=== PATIENT | male | born 1990 | race Caucasian/White ===

== ENCOUNTER 2017-02-14 21:17 | Emergency (ER) | payer BC ==
[2017-02-14 21:20] VITALS: BP 111/73; PULSE 66; TEMP 98.3; BMI 21.4
--- NOTE | 2017-02-14 21:39 | PDOC ---
History of Present Illness <Colin Paul - Last Filed: 02/14/17 21:35> - General History Source: Patient, Family Exam Limitations: No Limitations <Xavier Lara - Last Filed: 02/14/17 21:43> - General Chief Complaint: Syncope/Near Syncope Stated Complaint: SYNCOPE Time Seen by Provider: 02/14/17 21:20 - History of Present Illness Initial Comments: 02/14/17 21:40 The patient is a 26 year old male, with a significant past medical history of [place] syndrome and low blood pressure, who presents to the emergency department after a syncopal episode today. He reports that today he felt mild viral like syndromes, which included abdominal cramping throughout the day. While he was at dinner with his parents he became diaphoretic as the abdominal cramping worsened. He became lightheaded, which he described as pins and needles before he syncopized. He lost consciousness for roughly 30 seconds before regaining consciousness. He awoke disoriented, which resolved in roughly 30 seconds. He states that he has had prior syncopal episodes, with the last episode being on 12/2015, which he mostly attests to dehydration. No loss of sphincter control. He reports nausea but no vomiting. The patient denies chest pain, shortness of breath and headache. Allergies: Bacitracin Past surgical history: None reported Social history: No alcohol, tobacco or drug use reported (Xavier Lara) Past History - Past Medical History Other medical history: DENIES - Psycho/Social/Smoking Cessation Hx Anxiety: No Suicidal Ideation: No Smoking History: Never smoked <Colin Paul - Last Filed: 02/14/17 21:35> <Xavier Lara - Last Filed: 02/14/17 21:43> - Past Medical History Allergies/Adverse Reactions: Allergies Allergy/AdvReac Type Severity Reaction Status Date / Time bacitracin Allergy Verified 02/14/17 21:18 Home Medications: Ambulatory Orders NK [No Known Home Medication] 02/14/17 Review of Systems - Review of Systems Able to Perform ROS?: Yes Cardiac (ROS): Yes: Lightheadedness, Syncope ABD/GI: Yes: Nausea, Abdominal cramping All Other Systems: Reviewed and Negative <Xavier Lara - Last Filed: 02/14/17 21:43> *Physical Exam - Physical Exam General Appearance: Yes: Nourished, Appropriately Dressed. No: Apparent Distress HEENT: positive: EOMI, JOSE A, Normal ENT Inspection Neck: positive: Supple. negative: Tender, Carotid bruit Respiratory/Chest: positive: Lungs Clear, Normal Breath Sounds. negative: Chest Tender, Respiratory Distress Cardiovascular: positive: Regular Rhythm, Regular Rate, S1, S2. negative: Murmur, Gallop/S3 Gastrointestinal/Abdominal: positive: Normal Bowel Sounds, Soft. negative: Tender Musculoskeletal: positive: Normal Inspection Extremity: positive: Normal Capillary Refill, Normal Range of Motion Integumentary: positive: Normal Color Neurologic: positive: rider ticket worker II-XII NML intact, Fully Oriented, Alert, Normal Mood/ Affect, Normal Response, Motor Strength 5/5, Other (NO ATAXIA NO DRIFT) <Colin Paul - Last Filed: 02/14/17 21:35> - Vital Signs Last Vital Signs Temp Pulse Resp BP Pulse Ox 98.3 F 66 16 111/73 100 02/14/17 21:18 02/14/17 21:18 02/14/17 21:18 02/14/17 21:18 02/14/17 21:18 Progress Note <Colin Paul - Last Filed: 02/14/17 21:35> <Xavier Lara - Last Filed: 02/14/17 21:43> - Progress Note Progress Note: VASOVAGAL SYNCOPE (Colin Paul) *DC/Admit/Observation/Transfer <Colin Paul - Last Filed: 02/14/17 21:35> <Xavier Lara - Last Filed: 02/14/17 21:43> Diagnosis at time of Disposition: Vasovagal syncopes - Discharge Dispostion Disposition: HOME Condition at time of disposition: Stable - Referrals Referrals: STAFF,NOT ON [Primary Care Provider] - 2 Days - Patient Instructions Printed Discharge Instructions: DI for Syncope in Adults (Fainting) Additional Instructions: PLENTY OF FLUIDS (WATER/PEDIALYTE/GATORADE) REST CALL YOUR DOCTOR ON FRIDAY FOR FOLLOW UP RETURN IF NEW OR RECURRENT SYMPTOMS - Attestations Scribe Attestion: 02/14/17 21:43 Documentation prepared by Xavier Lara, acting as medical corps officer for Colin Paul MD (Xavier Lara)
--- NOTE | 2017-02-17 20:37 | EKG ---
Test Reason : Blood Pressure : / mmHG Vent. Rate : 063 BPM Atrial Rate : 063 BPM P-R Int : 168 ms QRS Dur : 114 ms QT Int : 400 ms P-R-T Axes : 025 026 025 degrees QTc Int : 409 ms NORMAL SINUS RHYTHM INCOMPLETE RIGHT BUNDLE BRANCH BLOCK BORDERLINE ECG NO PREVIOUS ECGS AVAILABLE Confirmed by AVILA JESSICA MD ([id number]) on 02/17/2017 8:37:24 PM Referred By: MD ASENCIO Confirmed By:AVILA JESSICA MD
== END 2017-02-14 21:49 | disposition home or self-care (01) ==
LOC: FER 21:17
DX: R55 Syncope and collapse (principal); E80.4 Gilbert syndrome; E03.9 Hypothyroidism, unspecified
CPT/HCPCS: 93005; 99283-25